=== PATIENT | male | born 1990 | race American Indian/Alaskan Native ===

== ENCOUNTER 2016-12-13 11:18 | Emergency (ER) | payer OTHER, SELFPAY ==
[2016-12-13 12:19] VITALS: BP 139/93
== END 2016-12-13 16:50 | disposition left against medical advice (07) ==
LOC: ED 11:18
DX: R36.9 Urethral discharge, unspecified (principal); Z53.21 Procedure and treatment not carried out due to patient leaving prior to being seen by health care provider